=== PATIENT | male | born 1960 | race African-American/Black ===

== ENCOUNTER 2017-07-10 16:23 | Emergency (ER) | payer MEDICAID ==
[~2017-07-10] VITALS: Ht 175.3 cm; Wt 87.0 kg
[2017-07-10 16:42] VITALS: BP 131/91
[2017-07-10] MEDS ORDERED: ALBU18HF2 (16:57)
[2017-07-10] MEDS ORDERED: TRAM50TA2 (16:57)
[2017-07-10] MEDS ORDERED: BECL10.6 (16:57)
[2017-07-10] MEDS ORDERED: OXYC30TA88 (16:57)
[2017-07-10] MEDS ORDERED: LORA10TA7 (16:57)
[2017-07-10] MEDS ORDERED: SODI44SP2 (16:57)
[2017-07-10] MEDS ORDERED: METO-411 (16:57)
[2017-07-10] MEDS ORDERED: LISI1TAB11 (16:57)
[2017-07-10] MEDS ORDERED: AMLO10TA (16:57)
[2017-07-10] MEDS ORDERED: FLUTICASONE (16:57)
[2017-07-10] MEDS ORDERED: CLOT15CR4 TOP (17:28)
[2017-07-10] MEDS ORDERED: ketorolac tromethamine 15mg/ml inj. IM ONE (17:35)
[2017-07-10] MEDS ORDERED: ketorolac trometh. 30mg/ml inj. IM ONE (17:35)
== END 2017-07-10 17:49 | disposition home or self-care (01) ==
LOC: ER 16:24
DX: L30.1 Dyshidrosis [pompholyx] (principal); J45.909 Unspecified asthma, uncomplicated; I10 Essential (primary) hypertension; G89.29 Other chronic pain; Z98.890 Other specified postprocedural states; Z79.899 Other long term (current) drug therapy
CPT/HCPCS: 96372; 99283; J1885

== ENCOUNTER 2018-05-15 11:53 | Emergency (ER) | payer MEDICAID ==
[~2018-05-15] VITALS: Ht 175.3 cm; Wt 86.4 kg
[~2018-05-15 11:53] MED LIST: ALBU18HF2; AMLO10TA; BECL10.6; CLOT15CR4 TOP; FLUTICASONE; LISI1TAB11; LORA10TA7; METO-411; OXYC30TA88; SODI44SP2; TRAM50TA2
[2018-05-15] MEDS ORDERED: AMOX-580 PO (12:16)
[2018-05-15] MEDS ORDERED: METH4TAB81 PO (12:16)
[2018-05-15] MEDS ORDERED: NYST1000 PO (12:16)
[2018-05-15 12:33] VITALS: BP 138/92
--- NOTE | 2018-05-15 12:34 | NUR ---
PATIENT SPOKE WITH RYLAN TALLEY, PATIENT TO RECEIVE BREATHING TREATMENT PRIOR TO DISCHARGE.
[2018-05-15] MEDS ORDERED: albuterol 2.5 MG/3 ML nebule NEB ONE (12:35)
--- NOTE | 2018-05-15 12:44 | NUR ---
KAIA JAMISON AT BEDSIDE.
== END 2018-05-15 12:59 | disposition home or self-care (01) ==
LOC: ER 11:53
DX: J01.90 Acute sinusitis, unspecified (principal); J98.01 Acute bronchospasm; I10 Essential (primary) hypertension; G89.29 Other chronic pain; Z98.890 Other specified postprocedural states; Z79.899 Other long term (current) drug therapy
CPT/HCPCS: 94640; 94760; 99283